=== PATIENT | male | born 1965 ===

== ENCOUNTER 2023-05-27 06:07 | Emergency (ER) | payer BC ==
[2023-05-27 07:13] LABS: BASOPHILS ABSOLUTE AUTO 0.04 K/uL (0.00-0.20); BASOPHILS PERCENT AUTO 0.3 % (0.0-1.0); EOSINOPHILS ABSOLUTE AUTO 0.09 K/uL (0.00-0.45); EOSINOPHILS PERCENT AUTO 0.6 % (0.0-6.0); HEMATOCRIT 43.3 % (42.0-52.0); HEMOGLOBIN 14.9 g/dL (14.0-18.0); IMMATURE GRAN ABSOLUTE AUTO 0.04 K/uL (0.00-0.05); IMMATURE GRAN PERCENT AUTO 0.3 % (0.0-0.4); LYMPHOCYTES ABSOLUTE AUTO 1.83 K/uL (1.00-4.80); MEAN CORPUSCULAR HEMOGLOBIN 31.2 pg (28.0-32.0); MEAN CORPUSCULAR HGB CONC 34.4 g/dL (32.0-36.0); MEAN CORPUSCULAR VOLUME 90.8 fL (83.0-99.0); MEAN PLATELET VOLUME 9.9 fL (9.4-12.4); MONOCYTES ABSOLUTE AUTO 0.84 K/uL (0.00-0.80); NEUTROPHILS PERCENT AUTO 79.8 % (41.0-71.0); PLATELET COUNT,PLT 253 K/uL (150-400); RED BLOOD CELL COUNT 4.77 M/uL (4.52-5.90); WHITE BLOOD CELL COUNT,WBC 14.04 K/uL (3.9-11.3)
[2023-05-27 07:36] LABS: C-REACTIVE PROTEIN 1.08 mg/dL (<0.3); CALCIUM 8.6 mg/dL (8.5-10.1); CREATININE 1.3 mg/dL (0.8-1.3); EST CRCL DRUG DOSING (CG) 61.94 mL/min; POTASSIUM,K 3.9 mmol/L (3.5-5.1); URIC ACID 8.9 mg/dL (2.6-7.2)
[2023-05-27] MEDS ORDERED: Lidocaine 1% 5 ML VIAL INJECT ONE (08:54)
[2023-05-27 10:02] LABS: BODY FLUID TYPE SYN
[2023-05-27 11:07] LABS: APPEARANCE,BODY FLUID CLOUDY; COLOR,BODY FLUID YELLOW; WBC BODY FLUID 7943 /uL
[2023-05-27 11:08] LABS: MONONUCLEAR, BODY FLUID 12.9 %; POLYMORPHONUCLEAR, BODY FLUID 87.1 %; RBC,BODY FLUID < 3000 /uL
== END 2023-05-27 12:17 | disposition home or self-care (01) ==
LOC: MW.ED 06:07
DX: M25.562 Pain in left knee (principal)
CPT/HCPCS: 20610; 36415; 73562-26-LT; 73562-LT; 80048; 84550; 85025; 85652; 86140; 87070; 87075; 87205; 89050; 89060; 93971-26-LT; 93971-LT; 99283; 99284; J3490